=== PATIENT | female | born 1940 | race Caucasian/White ===

== ENCOUNTER 2019-12-25 11:03 | Outpatient (CLI) | payer MEDICARE, SELFPAY | END 2019-12-25 11:04 | disposition home or self-care (01) | LOC: RADWPI 16:01 | PROVIDERS: Family Provider Family Medicine; PCP Family Medicine; Visit Provider Otolaryngology | DX: R49.0 Dysphonia (principal); J38.1 Polyp of vocal cord and larynx; J34.2 Deviated nasal septum; R05 Cough | CPT/HCPCS: 31575; 96372; 99214; J3301 ==

== ENCOUNTER 2020-01-01 13:33 | Outpatient (CLI) | payer MEDICARE, BC, SELFPAY ==
--- NOTE | 2020-01-01 13:49 | CT_ITS ---
WS: [id number] CT scan of the sinuses without IV contrast. Additional two-dimensional coronal and sagittal reconstru ction was performed. 01/01/2020 Clinical Data: hoarseness Comparison: None. DLP: 384.[address] scans at [facility] use at least one of these dose optimization techniques: automat ed exposure control; mA and/or kV adjustment per patient size (includes targeted exams where dose is matched to clinical indication); or iterative reconstruction. Findings: The sinus cavities are clear with no air-fluid levels or bone destruction. The orbits are intact. The nasal bones are unremarkable. The intraorbital contents show no abnormalities. The sella turcica, ma stoid air cells and internal auditory canals are unremarkable. The patient has had cataract surgery. CT/CT sinus wo con* [id number] Impression: Negative CT scan of the sinuses.
--- NOTE | 2020-01-01 13:49 | CT_ITS ---
WS: [id number] CT scan of the chest without IV contrast, additional two-dimensional coronal and sagittal reconstruct ion was performed. 01/01/2020 Clinical Data: hoarseness Comparison: PA and lateral chest, 03/14/2019. DLP: 529.[address] scans at [facility] use at least one of these dose optimization techniques: automat ed exposure control; mA and/or kV adjustment per patient size (includes targeted exams where dose is matched to clinical indication); or iterative reconstruction. Findings: No nodules, masses or effusions are seen. The heart size is slightly enlarged with a small pericardia l effusion. There is coronary artery calcification. The pulmonary arterial system and thoracic aorta demonstrate no abnormalities or dilatations. The trachea bifurcates normally into the bronchi. It is a small hiatal hernia. There is no axillary or significant mediastinal adenopathy. The upper abdomen shows no abnormalities. Moderate degenerative change with disc narrowing of the tho racic spine is noted. CT/CT chest wo con [id number] Impression: 1. Cardiomegaly with small pericardial effusion. 2. Coronary artery calcification.
== END 2020-01-01 13:34 | disposition home or self-care (01) ==
LOC: RADWPI 13:40
PROVIDERS: Family Provider Family Medicine; PCP Family Medicine; Visit Provider Otolaryngology
DX: I51.7 Cardiomegaly (principal); I31.3 Pericardial effusion (noninflammatory); I25.10 Atherosclerotic heart disease of native coronary artery without angina pectoris; R49.0 Dysphonia
CPT/HCPCS: 70486; 71250

== ENCOUNTER → 2020-01-05 13:35 | Outpatient (BNVA) | payer MEDICARE, BC, SELFPAY | PROVIDERS: Family Provider Family Medicine; PCP Family Medicine; Visit Provider Otolaryngology | DX: R49.0 Dysphonia (principal); J38.1 Polyp of vocal cord and larynx; J34.2 Deviated nasal septum; R05 Cough; I51.7 Cardiomegaly; I31.3 Pericardial effusion (noninflammatory) | CPT/HCPCS: 31575; 99214 ==

== ENCOUNTER 2020-03-25 15:35 | Outpatient (CLI) | payer MEDICARE, BC, SELFPAY ==
--- NOTE | 2020-03-25 15:45 | USCV_ITS ---
Sara Esparza Age: 79 Gender: F : 1940 Exam Date: 03/25/2020 15:46 Ordering Phys: Meseret Schroeder MD ([email or web address]) Technologist: Nusrat Donaldson [place]am [place] [facility] [place]: PER EFF BP: / HR: 67 Rhythm: Sinus Technical Quality: Fair MEASUREMENTS (Male / Female) Normal Values 2D ECHO LV Diastolic Diameter PLAX 5.1 cm 4.2 - 5.9 / 3.9 - 5.3 cm LV Systolic Diameter PLAX 3.6 cm LV Chamber Size 4.2 cm IVS Diastolic Thickness 1.2 cm 0.6 - 1.0 / 0.6 - 0.9 cm IVS Systolic Thickness 1.6 cm LVPW Diastolic Thickness 1.3 cm 0.6 - 1.0 / 0.6 - 0.9 cm LVPW Systolic Thickness 1.3 cm RV Chamber Size 3.0 cm LVOT Diameter 2.0 cm LV Ejection Fraction 2D Teich 54.8 % LV Ejection Fraction MOD 2C 65.1 % LV Ejection Fraction 2C AL 65.7 % LA Diameter 4.1 cm LA Width 2.5 cm LA Height 5.3 cm RA Width 2.3 cm RA Height 3.8 cm Aorta at Sinotubular Diameter 2.3 cm M-MODE LV Diastolic Diameter MM 5.4 cm 4.2 - 5.9 / 3.9 - 5.3 cm LV Systolic Diameter MM 3.9 cm LV Ejection Fraction MM Teich 52.0 % IVS Diastolic Thickness MM 1.1 cm 0.6 - 1.0 / 0.6 - 0.9 cm IVS Systolic Thickness MM 0.6 cm LVPW Diastolic Thickness MM 1.2 cm 0.6 - 1.0 / 0.6 - 0.9 cm LVPW Systolic Thickness MM 1.3 cm Aortic Annulus Diameter 2.7 cm LA Ao Ratio MM 1.5 MV E Point Septal Separation 0.3 cm DOPPLER AV Peak Velocity 173.0 cm/s LVOT Peak Velocity 170.0 cm/s AV Area Cont Eq vti 2.9 cm squared AV Area Cont Eq pk 3.1 cm squared MV Area PHT 3.7 cm squared Mitral E to A Ratio 1.1 MV E' Velocity 11.0 cm/s Mitral E to MV E' Ratio 12.1 Mitral E to LV E' Lateral Ratio 11.3 Mitral E to LV E' Septal Ratio 13.0 TR Peak Velocity 323.1 cm/s TR Peak Gradient 41.7 mmHg TR Mean Velocity 279.0 cm/s TR Mean Gradient 31.9 mmHg TR Velocity Time Integral 110.4 cm TV Peak E Velocity 72.0 cm/s PV Peak Velocity 100.0 cm/s FINDINGS Left Ventricle Normal left ventricular size and systolic function, with no regional wall motion abnormalities. Left ventricular ejection fraction is estimated at 65 %. Normal diastolic function. Right Ventricle Normal right ventricular size and systolic function. Right ventricular systolic pressure 45 mmHg. Right Atrium Normal right atrial size. Right atrial pressure estimated at 3 mmHg. Left Atrium Normal left atrial size. Mitral Valve Mild mitral annular calcification. Mildly thickened mitral valve. Trace mitral valve regurgitation. Aortic Valve Aortic valve not well visualized. No aortic valve stenosis. Trace to mild aortic valve regurgitation. Tricuspid Valve Structurally normal tricuspid valve. Trace to mild tricuspid valve regurgitation. Pulmonic Valve Pulmonic valve not well visualized. No pulmonary valve stenosis. No pulmonary valve regurgitation. Pericardium Echo free space anterior to the right ventricle likely represents a fat pad. Aorta Aorta not well visualized. Normal-sized inferior vena cava. CONCLUSIONS 1. Normal left ventricular size and systolic function, with no regional wall motion abnormalities. Left ventricular ejection fraction is estimated at 65 %. Normal diastolic function. 2. Normal right ventricular size and systolic function. 3. Pulmonary artery pressure estimated at 45 mmHg. 4. Trace to mild aortic valve regurgitation. 5. Echo free space anterior to the right ventricle likely represents a fat pad. 6. No prior similar studies to compare. Meseret Schroeder MD (Electronically Signed) Final Date: 28 March 2020 12:07 S
== END 2020-03-25 15:36 | disposition home or self-care (01) ==
LOC: RAD 15:40
PROVIDERS: PCP Family Medicine; Visit Provider Internal Medicine Cardiovascular Disease
DX: I31.3 Pericardial effusion (noninflammatory) (principal); R06.00 Dyspnea, unspecified; I35.1 Nonrheumatic aortic (valve) insufficiency
CPT/HCPCS: 93306

== ENCOUNTER 2021-06-28 10:15 | Outpatient (CLI) | payer MEDICARE, BC, SELFPAY ==
--- NOTE | 2021-06-28 10:20 | MM_ITS ---
WS: [id number] BILATERAL DIGITAL SCREENING MAMMOGRAPHY WITH CAD CLINICAL INFORMATION: SCREENING HISTORY: Screening mammogram. No current complaints. COMPARISON: TECHNIQUE: Bilateral CC and MLO views. FINDINGS: The breasts are composed of heterogeneous fibroglandular density tissue, which can limit the detectio n of small underlying mass lesions. No suspicious mass, asymmetry, calcifications, or architectural d istortion. No evidence of malignancy. Punctate and lucent centered calcifications. Vascular calcifica tion. MM/[id number] IMPRESSION: BI-RADS: 2-Benign FOLLOW UP: 1 Year Follow-up Recommend return to annual screening mammography.
== END 2021-06-28 10:16 | disposition home or self-care (01) ==
LOC: RADSHAW 10:19
PROVIDERS: PCP Family Medicine; Visit Provider Family Medicine
DX: Z12.31 Encounter for screening mammogram for malignant neoplasm of breast (principal)
CPT/HCPCS: 77067

== ENCOUNTER → 2022-06-29 10:40 | Outpatient (BNVA) | payer MEDICARE, SELFPAY | PROVIDERS: PCP Family Medicine; Visit Provider Family Medicine | DX: E78.5 Hyperlipidemia, unspecified (principal); Z00.00 Encounter for general adult medical examination without abnormal findings; R73.03 Prediabetes; E55.9 Vitamin D deficiency, unspecified; Z51.81 Encounter for therapeutic drug level monitoring; Z13.220 Encounter for screening for lipoid disorders | CPT/HCPCS: 80053; 80061; 82306; 83036; 85025 ==

== ENCOUNTER 2022-07-07 08:39 | Outpatient (CLI) | payer MEDICARE, SELFPAY ==
--- NOTE | 2022-07-07 09:14 | MM_ITS ---
WS: [id number] BILATERAL SCREENING DIGITAL TOMOSYNTHESIS MAMMOGRAM WITH CAD HISTORY: SCREEN COMPARISON: 06/28/2021 and 04/27/2016 Bilateral CC and MLO views with tomosynthesis and synthetic mammography submitted. Computer aided det ection analyzed. Breast composition: The breasts are heterogeneously dense, which may obscure small masses. No suspici ous masses, microcalcifications or architectural distortion. Stable asymmetries in the upper outer qu adrants of each breast. MM/[id number] IMPRESSION: BI-RADS: 2-Benign FOLLOW UP: 1 Year Follow-up
== END 2022-07-07 08:40 | disposition home or self-care (01) ==
PROVIDERS: PCP Family Medicine; Visit Provider Family Medicine
DX: Z12.31 Encounter for screening mammogram for malignant neoplasm of breast (principal)
CPT/HCPCS: 77063; 77067